=== PATIENT | female | born 1995 | race Caucasian/White ===

== ENCOUNTER 2018-11-15 15:41 | Emergency (ER) | payer OTHER ==
[~2018-11-15] VITALS: Ht 149.9 cm; Wt 54.5 kg
[2018-11-15] MEDS ORDERED: NEXP1IMP SC (15:47)
[2018-11-15 16:31] LABS: BASO # 0.1 10^3/uL (0.0-0.2); BASO % 0.7 % (0.0-1.0); EOS % 0.3 % (0.0-3.0); HEMATOCRIT 43.1 % (36.0-47.0); HEMOGLOBIN 14.6 g/dl (12.0-15.5); LYMPH # 1.7 10^3/uL (1.5-6.5); LYMPH % 25.1 % (24.0-44.0); MEAN CORPUSCULAR HEMOGLOBIN 31.2 pg (27.0-33.0); MEAN CORPUSCULAR HGB CONC 33.9 g/dl (32.0-36.5); MEAN CORPUSCULAR VOLUME 92.1 fl (80.0-96.0); MONO # 0.5 10^3/uL (0.0-0.8); MONO % 6.5 % (0.0-5.0); NEUTROPHILS # 4.6 10^3/uL (1.8-7.7); PLATELET COUNT, AUTOMATED 193 10^3/uL (150-450); RED BLOOD COUNT 4.68 10^6/uL (4.00-5.40); WHITE BLOOD COUNT 6.9 10^3/uL (4.0-10.0)
[2018-11-15 16:59] LABS: BLOOD UREA NITROGEN 10 MG/DL (7-18); CREATININE FOR GFR 0.86 MG/DL (0.55-1.30); GLUCOSE, FASTING 82 MG/DL (70-100)
[2018-11-15 17:00] LABS: ALBUMIN 4.2 GM/DL (3.2-5.2); ALT/SGPT 12 U/L (12-78); BILIRUBIN,DIRECT 0.2 MG/DL (0.0-0.2); BILIRUBIN,TOTAL 0.7 MG/DL (0.2-1.0); CALCIUM LEVEL 8.9 MG/DL (8.5-10.1); CARBON DIOXIDE LEVEL 23 MEQ/L (21-32); CHLORIDE LEVEL 106 MEQ/L (98-107); GLOMERULAR FILTRATION RATE > 60.0 (>60); LIPASE 106 U/L (73-393); POTASSIUM SERUM 3.8 MEQ/L (3.5-5.1); SODIUM LEVEL 137 MEQ/L (136-145); TOTAL PROTEIN 7.7 GM/DL (6.4-8.2)
[2018-11-15] MEDS ORDERED: KETOROLAC 30 MG/ML VIAL (J1885) IV ONE (17:00)
--- NOTE | 2018-11-15 17:56 | REP ---
CT abdomen pelvis without IV or oral contrast: History: Left flank pain. No comparison imaging. 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 The lung bases are clear. The liver and the spleen are normal in size homogeneous in texture. There is a small accessory splenule. No adrenal lesion is seen. Pancreas is unremarkable. No abnormalities noted in the gallbladder. There is no evidence of hydronephrosis on either side. No intrarenal calculus is observed. No mass or cyst is seen in either kidney. Small and large intestinal bowel loops are normal in the upper abdomen. Pelvic CT images however show a large heterogeneous predominantly low density lesion in the cul-de-sac. This measures 6.3 x 5.5 x 6.1 cm. The rectum is displaced posteriorly by this lesion. A normal right ovary is seen. The left ovary is not well seen separate from this lesion which is in the midline. A vaginal tampon is noted. Uterus is unremarkable. No abnormalities noted in the urinary bladder. The appendix is not seen. The lesion in the cul-de-sac does not appear to be related to bowel however. There is a tiny amount of cul-de-sac fluid adjacent to this. There are several right pelvic phleboliths. Impression: 6.3 x 5.5 x 6.1 cm heterogeneous low density cystic lesion in the cul-de-sac. Possibilities include hemorrhagic cyst, endometrioma, neoplastic ovarian cystic lesion, and ovarian torsion. Pelvic sonography and/or pelvic MRI may provide additional information. Appendix is not directly visualized. No urinary tract calculus or hydronephrosis seen. Electronically Signed by Bi Fernandez MD 11/16/2018 08:33 A
--- NOTE | 2018-11-15 18:44 | REPVR ---
EXAM: US Pelvis Complete, Transabdominal EXAM DATE/TIME: 11/15/2018 5:44 PM CLINICAL HISTORY: 23 years old, female; Pain and abnormal findings; Abnormal imaging test and mass/lesion; Pcds; Abdominal pain and pelvic pain; Lower abdomen; Additional info: Abnormal CT scan; Lower abdominal pain TECHNIQUE: Real-time transabdominal pelvic ultrasound with image documentation. Complete exam. COMPARISON: CT ABD PELVIS W/O CONTRAST 11/15/2018 4:49 PM FINDINGS: Uterus measures 7.4 x 2.7 x 3.5 cm in size. No focal uterine mass. Endometrial stripe appears homogeneous, measuring 2 mm in thickness. Right ovary measures 3.8 x 2.2 x 2.3 cm in size. No dominant mass or cyst. Left ovary measures 6.9 x 4.1 x 6 cm in size. It demonstrates heterogeneous echotexture and peripheral Doppler flow. Doppler flow is documented in both ovaries. No abnormal volume of free fluid within the pelvis. IMPRESSION: No evidence of ovarian torsion. However, the left ovary is enlarged with heterogeneous attenuation suggesting a complex cyst or possibly hemorrhagic cysts. No fatty elements or calcium to suggest a mature cystic teratoma. Sonographic followup in one half menstrual cycles is suggested Normal-appearing uterus and right ovary. Electronically signed by: Bebo Hughes On 11/15/2018 18:43:49 PM
[2018-11-15 19:02] VITALS: BP 101/61
--- NOTE | 2018-11-19 11:12 | ED PDOC ---
Post-Departure Follow-Up dr coto faxed formal report of ct abd/p for najma leon Maja MD Nov 19, 2018 11:12
--- NOTE | 2018-11-19 11:27 | ED PDOC ---
Post-Departure Follow-Up dr coto also faxed formal report of pelvic us fu Golden Mukherjee MD Nov 19, 2018 11:27
== END 2018-11-15 19:09 | disposition home or self-care (01) ==
LOC: M ED 15:41
DX: N83.209 Unspecified ovarian cyst, unspecified side (principal)
CPT/HCPCS: 74176; 76830; 76856; 80048; 80076; 81001; 81025; 83690; 85025; 93976; 96374; 99284; J1885